=== PATIENT | female | born 1955 | race African-American/Black ===

== ENCOUNTER → 2016-05-26 | Outpatient (CLI) | payer OTHER ==
--- NOTE | ~2016-05-26 | MY6 ---
[facility] A Service of [facility] & [facility] RADIOLOGY TEXT RESULTS PATIENT: KAITLIN REINOSO LOCATION: [facility] : 59 UNIT #: [id number] AGE: [address]: Maksim Garcia MD SEX: F ORDER DR: [id number] [facility] [address] [place], [place] [address] [id number] O MR#: [id number] Acc #: [id number] NAME: KAITLIN REINOSO. : 1955 SEX: F STUDY DATE/TIME: 05/26/2016 8:48 UNIT: [facility] ROOM: STUDY DESCRIPTION: MY Mammogram Dx Dig Nakul Attending Physician: Maksim Garcia M.D. Referring Physician: Maksim Garcia M.D. Ordering Physician: Maksim Garcia M.D. Primary Care Physician: Lionel Chairez M.D. MEDICAL IMAGING REPORT This report is preliminary unless electronic signature is present EXAM Diagnostic mammogram, 05/26. HISTORY History of right-side breast cancer status post lumpectomy. Small subareolar nodule seen in the left breast on recent chest CTA. Patient has no current complaints. TECHNIQUE Digital CC, MLO, and ML views of both breasts were obtained. Spot compression left MLO and CC views were obtained as well. Study is reviewed with an FDA-approved CAD device. COMPARISON STUDIES Comparison is made with prior mammograms from 05/06/2015, 04/30/2014, 12/05/2013, 04/18/2013, and 01/04/2012. FINDINGS Breast parenchyma shows scattered fibroglandular densities. No new masses or suspicious microcalcifications are seen. Lumpectomy bed on the right is stable. There is a small subareolar nodule in the left anterior breast measuring about 8 mm in size. This is well circumscribed and is stable going back to at least 2011. This is benign and presumably accounts for the finding on the chest CT. These findings were discussed with the patient at the time of her examination today. IMPRESSION Benign mammogram. Followup exam in one year is recommended. Patients over the age of 40 are entered into a reminder system with target due date for the next mammogram. A result letter will also be sent to the patient. [facility] A Service of [facility] RADIOLOGY TEXT RESULTS PATIENT: KAITLIN REINOSO LOCATION: [facility] : 59 UNIT #: [id number] AGE: [address]: Maksim Garcia MD SEX: F ORDER DR: BIRADS: 2 Benign finding. Dictated by... Altaf Vela Jr., M.D. THIS IS AN ELECTRONICALLY VERIFIED REPORT Altaf Vela Jr., M.D. at 05/26/2016 12:31 PM DEANA/edgar TD: 05/26/2016 10:10 JOB #: [id number] MEDICAL IMAGING REPORT Page 1 of 1 COPY
== END | disposition home or self-care (01) ==
LOC: CMAM 08:16
DX: Z08 Encounter for follow-up examination after completed treatment for malignant neoplasm (principal); D64.9 Anemia, unspecified; Z85.3 Personal history of malignant neoplasm of breast; Z98.890 Other specified postprocedural states
CPT/HCPCS: G0204